=== PATIENT | male | born 1980 | race Caucasian/White ===

== ENCOUNTER 2022-07-19 23:35 | Emergency (ER) | payer BC ==
[~2022-07-19] VITALS: Ht 177.8 cm; Wt 59.0 kg
[2022-07-19 23:50] VITALS: BP_SYST 146
--- NOTE | 2022-07-19 23:50 | NUR ---
Patient to ER bed 8 to gown for evaluation. Side rails up. Report given to RICHA HAWLEY.
--- NOTE | 2022-07-20 00:09 | NUR ---
SAPNA Miller at bedside.
--- NOTE | 2022-07-20 00:10 | NUR ---
Patient has an humolog insulin pump on left lower abdomen.
--- NOTE | 2022-07-20 00:10 | NUR ---
Patient presents to ED from home with c/o elevated blood sugar. Patient denies pain; 0/10 at this time. Patient states "My blood sugar was above 250 at home and then I took it again and it was 176. My blood sugar is going down and I need some chocolate to make sure it doesnt go too low. Patient's current blood sugar is 114. Patient is A/Ox4, VSS, ambulatory, resp even and unlabored. Skin warm, dry, intact, coloring wnl for ethnicity. Nad noted at this time.
[2022-07-20] MEDS ORDERED: NACL 0.9% 1,000 ML IV ONE (00:15)
--- NOTE | 2022-07-20 00:19 | NUR ---
Patient restin comfortably with side rails raised and significant other at bedside. Nad noted at this time.
[2022-07-20 00:34] LABS: CALCIUM 9.4 mg/dL (8.4-11.0); CREATININE 1.18 mg/dL (0.55-1.30); POTASSIUM 4.5 mmol/L (3.5-5.1)
[2022-07-20 00:39] LABS: ALBUMIN 3.7 g/dL (3.4-4.8); TOTAL BILIRUBIN 0.4 mg/dL (0.0-1.0)
[2022-07-20 02:04] VITALS: BP_SYST 146
--- NOTE | 2022-07-20 02:04 | NUR ---
Patient given written and verbal discharge instructions and verbalizes understanding. ER MD discussed with patient the results and treatment provided. Patient in stable condition. ID arm band removed. IV catheter removed intact and dressing applied, no active bleeding. Patient educated on pain management and to follow up with PMD. Pain Scale 0/10. Opportunity for questions provided and answered. Patient A/Ox4, VSS, ambulatory, resp even and unlabored. Patient in stable condition and accompanied by significant other at time of discharge.
== END 2022-07-20 02:04 | disposition home or self-care (01) ==
LOC: SED 23:35
DX: E10.65 Type 1 diabetes mellitus with hyperglycemia (principal); R73.9 Hyperglycemia, unspecified; Z79.899 Other long term (current) drug therapy
CPT/HCPCS: 99283; 80053; 82962; 36415; 96360; J7030

== ENCOUNTER 2023-06-30 01:21 | Emergency (ER) | payer SELFPAY ==
[~2023-06-30] VITALS: Ht 177.8 cm; Wt 93.0 kg
[2023-06-30 01:32] VITALS: BP_SYST 164; PULSE 89; RESP 20; TEMP 97.3; O2SAT 96
[2023-06-30] MEDS ORDERED: NACL 0.9% 1,000 ML IV ONE (02:00)
[2023-06-30 02:02] LABS: BASOPHILS % (AUTO) 0.6 % (0.0-2.0); EOSINOPHILS # (AUTO) 0.2 K/uL (0.0-0.4); EOSINOPHILS % (AUTO) 2.5 % (0.0-4.0); HEMATOCRIT 33.5 % (36-54); HEMOGLOBIN 11.6 g/dL (14.0-18.0); LYMPHOCYTES # (AUTO) 1.6 K/uL (1.0-5.5); MEAN CORPUSCULAR HEMOGLOBIN 30 pg (27-31); MEAN CORPUSCULAR HGB CONC 35 % (32-36); MEAN CORPUSCULAR VOLUME 87 fL (79.0-98.0); MONOCYTES # (AUTO) 0.4 K/uL (0.0-1.0); MONOCYTES % (AUTO) 6.8 % (1.7-9.3); NEUTROPHILS # (AUTO) 4.2 K/uL (1.8-7.7); NEUTROPHILS % (AUTO) 65.1 % (40.0-70.0); PLATELET COUNT (AUTO) 236 K/uL (130-430); RED BLOOD CELL COUNT(AUTO) 3.84 MIL/uL (4.2-6.2); RED CELL DISTRIBUTION WIDTH 13.1 % (9.0-15.0); WHITE BLOOD COUNT (AUTO) 6.4 K/uL (4.8-10.8)
[2023-06-30 02:21] LABS: ANION GAP 7 (5-15); CALCIUM 8.4 mg/dL (8.4-11.0); CARBON DIOXIDE 28 mmol/L (23-29); CHLORIDE 103 mmol/L (98-107); CREATININE 1.08 mg/dL (0.55-1.30); GFR AFRICAN AMERICAN 96 mL/min (>90); GLUCOSE 397 mg/dL (74-106); POTASSIUM 4.5 mmol/L (3.5-5.1); SODIUM SERUM 138 mmol/L (136-145); UREA NITROGEN, BLOOD 22 mg/dL (8-21)
[2023-06-30 02:25] LABS: GFR NON AFRICAN-AMERICAN 79 mL/min (>90)
[2023-06-30 02:26] LABS: ALANINE AMINOTRANSFERASE 37 U/L (12-78); ALBUMIN 3.6 g/dL (3.4-4.8); ASPARTATE AMINOTRANSFERASE 21 U/L (10-37); TOTAL BILIRUBIN 0.3 mg/dL (0.0-1.0); TOTAL PROTEIN, SERUM 6.2 g/dL (6.4-8.3)
[2023-06-30 02:30] LABS: BILIRUBIN,URINE NEGATIVE (NEGATIVE); CLARITY/URINE Clear (CLEAR); COLOR,URINE YELLOW (YELLOW); GLUCOSE,URINE 3+ (NEGATIVE); KETONES,URINE NEGATIVE (NEGATIVE); NITRITE, URINE NEGATIVE (NEGATIVE); PROTEIN URINE 1+ (NEGATIVE); UROBILINOGEN,URINE 0.2 (0.2-1.0)
[2023-06-30 02:35] LABS: BLOOD, URINE TRACE (NEGATIVE); LEUKOCYTE ESTERASE ,URINE NEGATIVE (NEGATIVE)
[2023-06-30 02:42] LABS: BACTERIA,URINE RARE /HPF (None Seen)
[2023-06-30 02:57] LABS: ACETONE, SERUM NEGATIVE (NEGATIVE)
[2023-06-30] MEDS ORDERED: INSULIN REGULAR, HUMAN 10 UNITS/0.1 ML, 3 ML VIAL IVP ONE (03:00)
[2023-06-30 04:12] VITALS: BP_SYST 147; PULSE 71; RESP 20; TEMP 97.7; O2SAT 96
== END 2023-06-30 04:12 | disposition home or self-care (01) ==
LOC: SED 01:21
DX: E10.65 Type 1 diabetes mellitus with hyperglycemia (principal); R35.89 Other polyuria; Z79.899 Other long term (current) drug therapy
CPT/HCPCS: 36415; 80053; 81000; 81003; 82009; 82962; 85025; 96374; 99283; J1815

== ENCOUNTER 2023-08-15 21:17 | Emergency (ER) | payer SELFPAY ==
[~2023-08-15] VITALS: Ht 177.8 cm; Wt 99.8 kg
[2023-08-15 21:27] VITALS: BP_SYST 134; PULSE 91; RESP 16; TEMP 96.9; O2SAT 99
[2023-08-15] MEDS ORDERED: KETOROLAC TROMETHAMINE 30 MG VIAL IVP ONE (22:15)
[2023-08-15] MEDS ORDERED: NACL 0.9% 1,000 ML IV ONE (22:15)
[2023-08-15 22:25] LABS: BILIRUBIN,URINE NEGATIVE (NEGATIVE); CLARITY/URINE CLEAR (CLEAR); COLOR,URINE YELLOW (YELLOW); GLUCOSE,URINE NEGATIVE (NEGATIVE); KETONES,URINE NEGATIVE (NEGATIVE); LEUKOCYTE ESTERASE ,URINE NEGATIVE (NEGATIVE); NITRITE, URINE NEGATIVE (NEGATIVE); PROTEIN URINE 1+ (NEGATIVE); UROBILINOGEN,URINE 0.2 (0.2-1.0)
[2023-08-15 22:26] LABS: BLOOD, URINE TRACE (NEGATIVE)
[2023-08-15 22:35] LABS: BACTERIA,URINE FEW /HPF (None Seen); WBC,URINE 0-3 /HPF (0-3)
[2023-08-15 22:57] LABS: BASOPHILS # (AUTO) 0.1 K/uL (0.0-0.2); BASOPHILS % (AUTO) 0.7 % (0.0-2.0); EOSINOPHILS # (AUTO) 0.2 K/uL (0.0-0.4); EOSINOPHILS % (AUTO) 2.4 % (0.0-4.0); HEMATOCRIT 35.1 % (36-54); HEMOGLOBIN 11.9 g/dL (14.0-18.0); LYMPHOCYTES # (AUTO) 2.1 K/uL (1.0-5.5); LYMPHOCYTES % (AUTO) 26.1 % (20.5-51.5); MEAN CORPUSCULAR HEMOGLOBIN 29 pg (27-31); MEAN CORPUSCULAR HGB CONC 34 % (32-36); MEAN CORPUSCULAR VOLUME 87 fL (79.0-98.0); MONOCYTES # (AUTO) 0.8 K/uL (0.0-1.0); MONOCYTES % (AUTO) 9.9 % (1.7-9.3); NEUTROPHILS % (AUTO) 60.9 % (40.0-70.0); PLATELET COUNT (AUTO) 291 K/uL (130-430); RED BLOOD CELL COUNT(AUTO) 4.05 MIL/uL (4.2-6.2); RED CELL DISTRIBUTION WIDTH 13.4 % (9.0-15.0); WHITE BLOOD COUNT (AUTO) 8.2 K/uL (4.8-10.8)
[2023-08-15 23:14] LABS: CALCIUM 8.9 mg/dL (8.4-11.0); CREATININE 0.84 mg/dL (0.55-1.30); POTASSIUM 4.3 mmol/L (3.5-5.1)
[2023-08-15 23:19] LABS: ALBUMIN 3.4 g/dL (3.4-4.8); TOTAL BILIRUBIN 0.4 mg/dL (0.0-1.0); TOTAL PROTEIN, SERUM 6.3 g/dL (6.4-8.3)
[2023-08-15] MEDS ORDERED: MORPHINE 4 MG INJ. 4 MG/ML VIAL IVP ONE (23:30)
[2023-08-16 00:25] VITALS: BP_SYST 133; PULSE 83; RESP 16; TEMP 97; O2SAT 98
== END 2023-08-16 00:25 | disposition home or self-care (01) ==
LOC: SED 21:17
DX: R10.84 Generalized abdominal pain (principal); E10.9 Type 1 diabetes mellitus without complications; Z79.899 Other long term (current) drug therapy
CPT/HCPCS: 99285; 74176; 96374; 96375; 80053; 81001; 85025; 36415; 76376; 83605; 81000; 81015; J1885; J2270

== ENCOUNTER 2023-11-12 17:53 | Emergency (ER) | payer SELFPAY ==
[~2023-11-12] VITALS: Ht 177.8 cm; Wt 97.5 kg
[2023-11-12 18:15] VITALS: BP_SYST 156; PULSE 106; RESP 19; TEMP 99.2; O2SAT 97
[2023-11-12 19:09] LABS: BASOPHILS % (AUTO) 0.4 % (0.0-2.0); EOSINOPHILS # (AUTO) 0.1 K/uL (0.0-0.4); EOSINOPHILS % (AUTO) 1.1 % (0.0-4.0); HEMATOCRIT 35.9 % (36-54); HEMOGLOBIN 12.8 g/dL (14.0-18.0); LYMPHOCYTES # (AUTO) 1.8 K/uL (1.0-5.5); LYMPHOCYTES % (AUTO) 17.6 % (20.5-51.5); MEAN CORPUSCULAR HEMOGLOBIN 31 pg (27-31); MEAN CORPUSCULAR HGB CONC 36 % (32-36); MEAN CORPUSCULAR VOLUME 87 fL (79.0-98.0); MONOCYTES # (AUTO) 0.9 K/uL (0.0-1.0); NEUTROPHILS # (AUTO) 7.1 K/uL (1.8-7.7); NEUTROPHILS % (AUTO) 71.9 % (40.0-70.0); PLATELET COUNT (AUTO) 278 K/uL (130-430); RED BLOOD CELL COUNT(AUTO) 4.14 MIL/uL (4.2-6.2); RED CELL DISTRIBUTION WIDTH 12.7 % (9.0-15.0); WHITE BLOOD COUNT (AUTO) 9.9 K/uL (4.8-10.8)
[2023-11-12 20:04] LABS: CALCIUM 9.4 mg/dL (8.4-11.0); CREATININE 0.83 mg/dL (0.55-1.30); POTASSIUM 4.2 mmol/L (3.5-5.1)
[2023-11-12 20:08] LABS: ALBUMIN 3.6 g/dL (3.4-4.8); BILIRUBIN,DIRECT 0.2 mg/dL (0.0-0.3); TOTAL BILIRUBIN 0.7 mg/dL (0.0-1.0); TOTAL PROTEIN, SERUM 6.8 g/dL (6.4-8.3)
[2023-11-12] MEDS ORDERED: ACETAMINOPHEN 500 MG TABLET PO ONE (20:15)
[2023-11-12] MEDS ORDERED: KETOROLAC TROMETHAMINE 30 MG VIAL IM ONE (20:15)
[2023-11-12] MEDS ORDERED: ACETAMINOPHEN 500 MG TABLET ONE (20:18)
[2023-11-12 20:27] LABS: BILIRUBIN,URINE NEGATIVE (NEGATIVE); BLOOD, URINE 2+ (NEGATIVE); CLARITY/URINE CLEAR (CLEAR); COLOR,URINE YELLOW (YELLOW); GLUCOSE,URINE TRACE (NEGATIVE); KETONES,URINE NEGATIVE (NEGATIVE); LEUKOCYTE ESTERASE ,URINE NEGATIVE (NEGATIVE); NITRITE, URINE NEGATIVE (NEGATIVE); PROTEIN URINE 2+ (NEGATIVE); UROBILINOGEN,URINE 0.2 (0.2-1.0)
[2023-11-12 20:35] LABS: BACTERIA,URINE None Seen /HPF (None Seen)
[2023-11-12] MEDS ORDERED: NACL 0.9% 1,000 ML IV ONE (21:30)
[2023-11-12 21:51] LABS: COVID19 ANTIGEN SOFIA FIA NEGATIVE (NEGATIVE)
[2023-11-12] MEDS ORDERED: MORPHINE 4 MG INJ. 4 MG/ML VIAL IVP ONE (22:00)
[2023-11-12 22:31] LABS: INFLUENZA TYPE A Negative (NEGATIVE); INFLUENZA TYPE B NEGATIVE (NEGATIVE)
[2023-11-12] MEDS ORDERED: CIPR500T5 PO (23:24)
[2023-11-12] MEDS ORDERED: PHEN-726 PO (23:30)
[2023-11-12 23:35] VITALS: BP_SYST 156; PULSE 106; RESP 19; TEMP 99.2; O2SAT 97
== END 2023-11-12 23:34 | disposition home or self-care (01) ==
LOC: SED 17:53
DX: N30.00 Acute cystitis without hematuria (principal); R10.30 Lower abdominal pain, unspecified; R39.11 Hesitancy of micturition; R50.9 Fever, unspecified; E10.9 Type 1 diabetes mellitus without complications; Z79.899 Other long term (current) drug therapy; Z20.822 Contact with and (suspected) exposure to COVID-19
CPT/HCPCS: 99285; 74177; 96374; 96361; 87426; 80076; 80048; 81001; 83690; 85025; 36415; 76376; 96372; 87804 ×2; 81000; 81015; J1885; J2270; J7030; Q9967